=== PATIENT | female | born 1990 | race Two or more races ===

== ENCOUNTER 2022-03-14 08:48 | Outpatient (CLI) | payer OTHER | END 2022-03-14 09:45 | disposition home or self-care (01) | LOC: PRENATAL 08:48 | PROVIDERS: ATTEND Obstetrics & Gynecology Maternal & Fetal Medicine | DX: O36.80X0 Pregnancy with inconclusive fetal viability, not applicable or unspecified (principal); Z36.0 Encounter for antenatal screening for chromosomal anomalies; Z3A.12 12 weeks gestation of pregnancy ==

== ENCOUNTER 2022-05-09 12:59 | Outpatient (CLI) | payer OTHER | END 2022-05-09 14:28 | disposition home or self-care (01) | LOC: PRENATAL 12:59 | PROVIDERS: ATTEND Obstetrics & Gynecology Maternal & Fetal Medicine | DX: O36.80X0 Pregnancy with inconclusive fetal viability, not applicable or unspecified (principal); O44.00 Complete placenta previa NOS or without hemorrhage, unspecified trimester; Z3A.20 20 weeks gestation of pregnancy; Z88.0 Allergy status to penicillin; Z88.8 Allergy status to other drugs, medicaments and biological substances ==

== ENCOUNTER 2022-09-21 19:04 | Inpatient (IN) | payer OTHER ==
[~2022-09-21] VITALS: Ht 165.1 cm; Wt 70.3 kg
[2022-09-21] MEDS ORDERED: PRENATAL TABLE1 EAC1 PO (19:16)
== END 2022-09-23 19:49 | disposition home or self-care (01) | DRG 807 ==
LOC: OB/GYN 19:04 → LDR 19:04 → OB/GYN 09-22 23:17 → LDR 09-24 15:47
PROVIDERS: ADMIT Student in an Organized Health Care Education/Training Program; ATTEND Obstetrics & Gynecology
PROC: 10E0XZZ Delivery of Products of Conception, External Approach (ICD-10-PCS; principal; 2022-09-21)
PROC: 0HQ9XZZ Repair Perineum Skin, External Approach (ICD-10-PCS; 2022-09-21)
PROC: 4A1HXCZ Monitoring of Products of Conception, Cardiac Rate, External Approach (ICD-10-PCS; 2022-09-21)
DX: O70.0 First degree perineal laceration during delivery (principal); Z37.0 Single live birth; Z3A.39 39 weeks gestation of pregnancy; Z20.822 Contact with and (suspected) exposure to COVID-19

== ENCOUNTER 2024-07-02 09:54 | Outpatient (CLI) | payer OTHER ==
[~2024-07-02 09:54] MED LIST: PRENATAL TABLE1 EAC1 PO
== END 2024-07-02 10:01 | disposition home or self-care (01) ==
LOC: PRENATAL 09:54
PROVIDERS: ATTEND Obstetrics & Gynecology Maternal & Fetal Medicine
DX: Z76.1 Encounter for health supervision and care of foundling (principal)

== ENCOUNTER 2024-07-09 15:06 | Outpatient (CLI) | payer OTHER | END 2024-07-09 15:07 | disposition home or self-care (01) | LOC: PRENATAL 15:06 | PROVIDERS: ATTEND Obstetrics & Gynecology Maternal & Fetal Medicine | DX: O36.80X0 Pregnancy with inconclusive fetal viability, not applicable or unspecified (principal); Z36.82 Encounter for antenatal screening for nuchal translucency; Z36.9 Encounter for antenatal screening, unspecified; Z3A.12 12 weeks gestation of pregnancy ==

== ENCOUNTER → 2024-09-03 14:34 | Outpatient (CLI) | payer OTHER | END | disposition home or self-care (01) | LOC: PRENATAL 14:34 | PROVIDERS: ATTEND Obstetrics & Gynecology Maternal & Fetal Medicine | DX: O35.3XX0 Maternal care for (suspected) damage to fetus from viral disease in mother, not applicable or unspecified (principal); O44.00 Complete placenta previa NOS or without hemorrhage, unspecified trimester; Z3A.20 20 weeks gestation of pregnancy ==

== ENCOUNTER → 2024-10-30 15:14 | Outpatient (CLI) | payer OTHER | END | disposition home or self-care (01) | LOC: PRENATAL 15:14 | PROVIDERS: ATTEND Obstetrics & Gynecology Maternal & Fetal Medicine | DX: O26.849 Uterine size-date discrepancy, unspecified trimester (principal); O44.00 Complete placenta previa NOS or without hemorrhage, unspecified trimester; O43.90 Unspecified placental disorder, unspecified trimester; Z3A.28 28 weeks gestation of pregnancy ==

== ENCOUNTER → 2024-12-13 14:07 | Outpatient (CLI) | payer OTHER | END | disposition home or self-care (01) | LOC: PRENATAL 14:07 | PROVIDERS: ATTEND Obstetrics & Gynecology Maternal & Fetal Medicine | DX: O26.849 Uterine size-date discrepancy, unspecified trimester (principal); O36.8199 Decreased fetal movements, unspecified trimester, other fetus; O43.90 Unspecified placental disorder, unspecified trimester; Z3A.33 33 weeks gestation of pregnancy ==

== ENCOUNTER 2025-01-10 14:00 | Inpatient (IN) | payer OTHER ==
[~2025-01-10] VITALS: Ht 165.1 cm; Wt 72.1 kg
[2025-01-10 14:32] LABS: PH,URINE 5.5 (5.0-8.0); URINE APPEARANCE Clear; URINE BILIRRUBIN Negative (NEGATIVE); URINE BLOOD Trace; URINE COLOR Yellow; URINE GLUCOSE Negative (NEGATIVE); URINE KETONE Negative (NEGATIVE); URINE LEUKOCYTE Negative; URINE NITRATE Negative; URINE PROTEIN Negative (NEGATIVE); URINE UROBILINOGEN 0.2 E.U./dl
[2025-01-10 14:34] LABS: URINE BACTERIA 51.3 uL (0.0-1933); URINE EPITHELIAL CELLS 3.9 uL (0.0-38.8); URINE WBC 2.5 uL (0.0-23.2)
[2025-01-10 14:36] LABS: HEMATOCRIT 37.3 % (36.0-45.00); HEMOGLOBIN 12.5 g/dL (12.0-15.00); MEAN CELL VOLUME 90.6 fL (80.00-100.00); MEAN CORPUSCULAR HEMOGLOBIN 30.3 pg (27.00-32.0); MEAN CORPUSCULAR HGB CONC 33.4 g/dl (32.0-36.0); PLATELET COUNT 219 K/uL (150-450); RED BLOOD COUNT 4.12 M/uL (4.00-6.00); RED CELL DISTRIBUTION WIDTH 14.4 % (11.5-14.5)
[2025-01-10 15:01] LABS: INR < 0.93; PARTIAL THROMBOPLASTIN TIME 23.3 SECONDS (22.0-34.0); PROTHROMBIN TIME 9.8 SECONDS (9.0-11.5)
[2025-01-10 15:33] LABS: ALBUMIN 3.1 gm/dL (3.4-5.0); BILIRUBIN TOTAL 0.35 mg/dL (0.3-1.2); CALCIUM 9.2 mg/dL (8.5-10.1); CREATININE SERUM 0.61 mg/dL (0.55-1.02); GFR 112.95; POTASSIUM 4.4 mEq/L (3.5-5.1); TOTAL PROTEIN 7.1 gm/dL (6.4-8.2)
[2025-01-21 02:13] VITALS: BP 129/76
[2025-01-21] MEDS ORDERED: RINGERS SOLUTION,LACTATED 1,000 ML IV SCH (02:45)
[2025-01-21 04:03] VITALS: BP 136/90
[2025-01-21 04:18] VITALS: BP 127/84
[2025-01-21] MEDS ORDERED: CHLORHEXIDINE GLUCONATE 120 ML BOTTLE TOP SCH (04:30)
[2025-01-21] MEDS ORDERED: ACETAMINOPHEN 325 MG TABLET PO PRN (04:30)
[2025-01-21] MEDS ORDERED: OXYTOCIN 1,000 ML IV SCH (04:30)
[2025-01-21] MEDS ORDERED: IBUprofen 400 MG TABLET PO PRN (04:30)
[2025-01-21] MEDS ORDERED: ERYTHROMYCIN BASE OPHT 1GM EACH TUBE OP ONE (04:45)
[2025-01-21 07:35] VITALS: BP 132/79
[2025-01-21] MEDS ORDERED: PNV,CALCIUM 72/IRON/FOLIC ACID 1 TAB TABLET PO SCH (09:00)
[2025-01-21 09:20] VITALS: BP 130/86
[2025-01-21 17:09] VITALS: BP 108/66
[2025-01-21 18:58] LABS: HEMATOCRIT 32.7 % (36.0-45.00); HEMOGLOBIN 10.9 g/dL (12.0-15.00); MEAN CELL VOLUME 88.6 fL (80.00-100.00); MEAN CORPUSCULAR HEMOGLOBIN 29.7 pg (27.00-32.0); MEAN CORPUSCULAR HGB CONC 33.5 g/dl (32.0-36.0); PLATELET COUNT 228 K/uL (150-450); RED BLOOD COUNT 3.69 M/uL (4.00-6.00); RED CELL DISTRIBUTION WIDTH 14.9 % (11.5-14.5)
[2025-01-22] VITALS: BP 97/60
[2025-01-22 08:58] VITALS: BP 101/63
[2025-01-22 16:33] VITALS: BP 120/76
[2025-01-23 00:57] VITALS: BP 110/69
[2025-01-23 08:00] VITALS: BP 108/74
== END 2025-01-23 13:38 | disposition home or self-care (01) | DRG 807 ==
LOC: LDR 01-21 02:33 → OB/GYN 01-21 02:33 → LDR 01-21 14:00 → OB/GYN 01-23 13:38
PROVIDERS: Obstetrics & Gynecology; ADMIT Obstetrics & Gynecology; ATTEND Obstetrics & Gynecology
PROC: 10E0XZZ Delivery of Products of Conception, External Approach (ICD-10-PCS; principal; 2025-01-21)
PROC: 4A1HXCZ Monitoring of Products of Conception, Cardiac Rate, External Approach (ICD-10-PCS; 2025-01-21)
DX: O80 Encounter for full-term uncomplicated delivery (principal); Z37.0 Single live birth; Z3A.40 40 weeks gestation of pregnancy